=== PATIENT | male | born 1935 | race Caucasian/White ===

== ENCOUNTER 2021-11-19 06:15 | Emergency (ER) | payer MEDICARE ==
[~2021-11-19] VITALS: Ht 170.2 cm; Wt 86.2 kg
[2021-11-19 07:14] LABS: BASOPHILS # (AUTO) 0.1 (0.0-0.1); BASOPHILS % 0.9 % (0.0-1.0); EOSINOPHILS # (AUTO) 0.2 (0.0-0.4); EOSINOPHILS % 1.9 % (0.0-6.0); HEMATOCRIT 46.3 % (38.2-49.6); HEMOGLOBIN 15.1 g/dL (14.0-18.0); LYMPHOCYTES # (AUTO) 2.7 (1.0-3.2); LYMPHOCYTES % 33.8 % (18.0-39.1); MEAN CORPUSCULAR HEMOGLOBIN 30.9 pg (28-32); MEAN CORPUSCULAR HGB CONC 32.6 g/dL (31-35); MEAN CORPUSCULAR VOLUME 94.7 fL (81-99); MONOCYTES % 12.3 % (4.4-11.3); NEUTROPHILS # (AUTO) 4.1 (2.1-6.9); NEUTROPHILS % 50.8 % (38.7-80.0); PLATELET COUNT 279 x10e3/uL (140-360); RED BLOOD COUNT 4.89 x10e6/uL (4.3-5.7); RED CELL DISTRIBUTION WIDTH 13.1 % (11.7-14.4)
[2021-11-19] MEDS ORDERED: SODIUM CHLORIDE 0.9% 500ML 500 ML IV ONE (07:15)
[2021-11-19 07:30] LABS: INR 0.84; PROTHROMBIN TIME 12.3 seconds (11.9-14.5)
[2021-11-19 07:31] LABS: PARTIAL THROMBOPLASTIN TIME 30.7 seconds (23.8-35.5)
[2021-11-19 07:39] LABS: ALBUMIN 3.9 g/dL (3.5-5.0); ALBUMIN/GLOBULIN RATIO 1.1 (0.8-2.0); ANION GAP 15.9 mmol/L (8-16); CALCIUM 9.1 mg/dL (8.4-10.2); CREATININE, SERUM 0.96 mg/dL (0.72-1.25); MAGNESIUM 2.2 MG/DL (1.3-2.1); POTASSIUM 3.9 mmol/L (3.5-5.1)
[2021-11-19] MEDS ORDERED: KETOROLAC TROMETHAMINE 30 MG/ML VIAL IV STA (07:52)
[2021-11-19 07:53] LABS: CLARITY,URINE CLEAR (CLEAR); COLOR,URINE YELLOW (YELLOW); KETONES,URINE 1+ (NEGATIVE); LEUKOCYTE ESTERASE ,URINE NEGATIVE (NEGATIVE); NITRITE,URINE NEGATIVE (NEGATIVE); PROTEIN,URINE DIPSTICK 1+ (NEGATIVE); URINE UROBILINOGEN 0.2 mg/dL (0.2 - 1)
[2021-11-19 07:54] LABS: ERYTHROCYTE SEDIMENTATION RATE 16 mm/hr (0-13)
[2021-11-19 07:59] LABS: CREATINE KINASE MB 1.7 ng/mL (0-5.0); THYROID STIMULATING HORMONE 0.973 uIU/mL (0.350-4.940)
[2021-11-19 08:07] LABS: BACTERIA,URINE MODERATE /HPF; EPITHELIAL CELLS,URINE FEW /LPF
[2021-11-19] MEDS ORDERED: IOPAMIDOL 370 MG/ML 100 ML INFUS..BTL INJ ONE (09:17)
[2021-11-19 09:32] VITALS: BP 137/88
== END 2021-11-19 09:35 | disposition home or self-care (01) ==
LOC: ER 06:43
DX: M54.50 Low back pain, unspecified (principal); M25.552 Pain in left hip; M25.551 Pain in right hip; M25.562 Pain in left knee; M25.561 Pain in right knee; N39.0 Urinary tract infection, site not specified; I10 Essential (primary) hypertension; J44.9 Chronic obstructive pulmonary disease, unspecified; E78.5 Hyperlipidemia, unspecified; I50.9 Heart failure, unspecified
CPT/HCPCS: 36415; 71045; 72110; 72132; 80053; 81001; 82550; 82553; 83735; 83880; 84443; 84484; 85025; 85610; 85651; 85730; 87086; 93005; 99284; J0696; J1885; J7040; Q9967

== ENCOUNTER 2021-11-27 02:43 | Emergency (ER) | payer MEDICARE ==
[~2021-11-27] VITALS: Ht 170.2 cm; Wt 86.2 kg
[2021-11-27] MEDS ORDERED: METHYLPREDNISOLONE SOD SUCC 125 MG/2ML VIAL INJ STA (02:56)
[2021-11-27] MEDS ORDERED: KETOROLAC TROMETHAMINE 30 MG/ML VIAL IM ONE (03:00)
[2021-11-27] MEDS ORDERED: HYDROCODONE/APAP 5MG-325MG TAB PO STA (04:36)
[2021-11-27] MEDS ORDERED: HYDROCODON-ACE1 EA11 PO (04:38)
[2021-11-27] MEDS ORDERED: PREDNISONE20 MG PO (04:38)
[2021-11-27] MEDS ORDERED: HYDROCODONE/APAP 5MG-325MG TAB ONE (04:50)
[2021-11-27 05:05] VITALS: BP 134/101
== END 2021-11-27 05:08 | disposition home or self-care (01) ==
LOC: ER 02:46
DX: M47.892 Other spondylosis, cervical region (principal); I10 Essential (primary) hypertension; E78.5 Hyperlipidemia, unspecified; J44.9 Chronic obstructive pulmonary disease, unspecified; I50.9 Heart failure, unspecified; H35.30 Unspecified macular degeneration; Z20.822 Contact with and (suspected) exposure to COVID-19
CPT/HCPCS: 72125; 99283; J1885; J2930; U0002

== ENCOUNTER → 2021-12-23 | Outpatient (CLI) | payer MEDICARE ==
[~2021-12-23] MED LIST: HYDROCODON-ACE1 EA11 PO; PREDNISONE20 MG PO
== END ==
LOC: MRI 13:25
PROVIDERS: ATTEND Neurological Surgery
DX: M50.020 Cervical disc disorder with myelopathy, mid-cervical region, unspecified level (principal)
CPT/HCPCS: 72141